=== PATIENT | male | born 1985 | race Caucasian/White ===

== ENCOUNTER 2016-04-03 04:16 | Emergency (ER) | payer BC, OTHER ==
[2016-04-03 04:39] VITALS: BP 114/74; PULSE 74; TEMP 97.9; BMI 37.5
--- NOTE | 2016-04-03 04:54 | PDOC ---
History of Present Illness - General History Source: Patient <Carlos Shrestha - Last Filed: 04/03/16 05:01> - General History Source: Patient Exam Limitations: No Limitations - History of Present Illness Initial Comments: 04/03/16 04:57 The patient is a 30 yo M with a PMHx of gastric bypass who presents to the ED with lower abdominal pain, diarrhea and vomiting for the past 2 days. The patient reports intermittent diarrhea for the past couple of weeks (denies bloody or mucousy stool). However, recently he reports increasing diarrhea with associated lower abdominal pain. The patient reports taking advil at 10:30 prior to presentation however denies any relief. He denies any sick contacts or recent travel. <Sveta David - Last Filed: 04/03/16 05:03> - General Chief Complaint: Pain Stated Complaint: ABD PAIN, FEVER Time Seen by Provider: 04/03/16 04:35 Past History - Surgical History Gastric Stapling: Yes (GASTRIC SLEEVE) - Immunization History TDAP Vaccination: Yes (09/27/15) Immunization Up to Date: No - Psycho/Social/Smoking Cessation Hx Anxiety: No Suicidal Ideation: No Smoking Status: No Smoking History: Never smoked Have you smoked in the past 12 months: No Number of Cigarettes Smoked Daily: 0 Information on smoking cessation initiated: No Hx Alcohol Use: No Drug/Substance Use Hx: No Substance Use Type: None <VicenteMargauxCarlos campos - Last Filed: 04/03/16 05:01> <Sveta David - Last Filed: 04/03/16 05:03> - Past Medical History Allergies/Adverse Reactions: Allergies Allergy/AdvReac Type Severity Reaction Status Date / Time No Known Allergies Allergy Verified 04/03/16 04:25 Home Medications: Ambulatory Orders No Home Medications 0 dose .ROUTE UTDICT 03/08/13 Review of Systems - Review of Systems Able to Perform ROS?: Yes Comments:: 04/03/16 05:01 + vomiting + lower abdominal pain + diarrhea <Sveta David - Last Filed: 04/03/16 05:03> *Physical Exam - Vital Signs Last Vital Signs Temp Pulse Resp BP Pulse Ox 97.9 F 74 14 114/74 100 04/03/16 04:26 04/03/16 04:26 04/03/16 04:26 04/03/16 04:26 04/03/16 04:26 - Physical Exam General Appearance: Yes: Nourished, Appropriately Dressed. No: Apparent Distress HEENT: positive: Normal ENT Inspection Respiratory/Chest: positive: Lungs Clear, Normal Breath Sounds. negative: Respiratory Distress Cardiovascular: positive: Regular Rhythm, Regular Rate Gastrointestinal/Abdominal: positive: Normal Bowel Sounds, Soft. negative: Tender Musculoskeletal: positive: Normal Inspection. negative: CVA Tenderness Integumentary: positive: Normal Color Neurologic: positive: Fully Oriented, Alert, Normal Mood/Affect, Normal Response , Motor Strength 5/5 <Carlos Shrestha - Last Filed: 04/03/16 05:01> - Vital Signs Last Vital Signs Temp Pulse Resp BP Pulse Ox 97.9 F 74 14 114/74 100 04/03/16 04:26 04/03/16 04:26 04/03/16 04:26 04/03/16 04:26 04/03/16 04:26 <Sveta David - Last Filed: 04/03/16 05:03> *DC/Admit/Observation/Transfer <Carlos Shrestha - Last Filed: 04/03/16 05:01> - Attestations Scribe Attestion: 04/03/16 05:03 Documentation prepared by Sveta David, acting as medical delivery technician for Carlos Shrestha MD. <Sveta David - Last Filed: 04/03/16 05:03> Diagnosis at time of Disposition: Diarrhea Qualifiers: Diarrhea type: unspecified type Qualified Code(s): R19.7 - Diarrhea, unspecified - Discharge Dispostion Disposition: HOME - Referrals Referrals: Rico Beckham MD [Primary Care Provider] - Call tomorrow - Patient Instructions Additional Instructions: PLENTY OF FLUIDS (WATER/GATORADE) BLAND DIET, ADVANCE TOLERATED EAT FREQUENT, SMALL MEALS THROUGHOUT THE DAY RETURN IF FEVER, VOMITING, SEVERE PAIN - Post Discharge Activity Work/School Note: Back to Work
== END 2016-04-03 05:03 | disposition home or self-care (01) ==
LOC: JER 04:16
DX: R19.7 Diarrhea, unspecified (principal); Z98.84 Bariatric surgery status
CPT/HCPCS: 99282-25

== ENCOUNTER 2017-05-13 17:12 | Emergency (ER) | payer BC, OTHER ==
[2017-05-13 17:31] VITALS: BP 123/80; PULSE 62; TEMP 98.2; BMI 40.1
--- NOTE | 2017-05-13 17:46 | PDOC ---
History of Present Illness - General History Source: Patient Exam Limitations: No Limitations - History of Present Illness Initial Comments: 05/13/17 17:43 Patient is a 31M with history of gastric sleeve placement 6 years ago here today complaining of 2 weeks of cold symptoms. He states that he's been struggling with a cough, rhinorrhea, and sore throat. He state that he's coming in today because he read on WebMD that he could have pneumonia. He smokes hooka on weekends. He denies fevers, chills, nausea, vomiting, abdominal pain, shortness of breath and chest pain. <Fabricio Grider - Last Filed: 05/13/17 19:14> <Quirino Villanueva - Last Filed: 05/15/17 10:19> - General Chief Complaint: Respiratory Stated Complaint: COUGH & COLD SX Time Seen by Provider: 05/13/17 17:14 Past History - Past Medical History COPD: No - Surgical History Gastric Stapling: Yes (GASTRIC SLEEVE) - Immunization History TDAP Vaccination: (09/27/15) Immunization Up to Date: No - Suicide/Smoking/Psychosocial Hx Smoking Status: No Smoking History: Never smoked Have you smoked in the past 12 months: No Number of Cigarettes Smoked Daily: 0 Hx Alcohol Use: (social) Drug/Substance Use Hx: No Substance Use Type: None <Fabricio Grider - Last Filed: 05/13/17 19:14> <Quirino Villanueva - Last Filed: 05/15/17 10:19> - Past Medical History Allergies/Adverse Reactions: Allergies Allergy/AdvReac Type Severity Reaction Status Date / Time No Known Allergies Allergy Verified 05/13/17 17:27 Home Medications: Ambulatory Orders No Home Medications 0 dose .ROUTE UTDICT 03/08/13 Review of Systems - Review of Systems Comments:: 05/13/17 17:46 GENERAL/CONSTITUTIONAL: No fever or chills. No weakness. HEAD, EYES, EARS, NOSE AND THROAT: No change in vision. Positive for sore throat. CARDIOVASCULAR: No chest pain or shortness of breath RESPIRATORY: Positive for cough, wheezing. Negative for hemoptysis. GASTROINTESTINAL: No nausea, vomiting, diarrhea or constipation. GENITOURINARY: No dysuria, frequency, or change in urination. MUSCULOSKELETAL: No joint or muscle swelling or pain. No neck or back pain. SKIN: No rash NEUROLOGIC: No headache, vertigo, loss of consciousness, or change in strength/ sensation. ENDOCRINE: No increased thirst. No abnormal weight change HEMATOLOGIC/LYMPHATIC: No anemia, easy bleeding, or history of blood clots. ALLERGIC/IMMUNOLOGIC: No hives or skin allergy. <Fabricio Grider - Last Filed: 05/13/17 19:14> *Physical Exam - Vital Signs Last Vital Signs Temp Pulse Resp BP Pulse Ox 98.2 F 62 18 123/80 100 05/13/17 17:12 05/13/17 17:12 05/13/17 17:12 05/13/17 17:12 05/13/17 17:12 - Physical Exam Comments: 05/13/17 17:47 GENERAL: Awake, alert, and fully oriented, in no acute distress HEAD: No signs of trauma, normocephalic, atraumatic EYES: PERRLA, EOMI, sclera anicteric, conjunctiva clear ENT: Auricles normal inspection, hearing grossly normal, nares patent, pharyngeal erythema. Moist mucosa NECK: Normal ROM, supple, no lymphadenopathy, JVD, or masses LUNGS: No distress, speaks full sentences, clear to auscultation bilaterally HEART: Regular rate and rhythm, normal S1 and S2, no murmurs, rubs or gallops, peripheral pulses normal and equal bilaterally. EXTREMITIES: Normal inspection, Normal range of motion, no edema. No clubbing or cyanosis. NEUROLOGICAL: Cranial nerves II through XII grossly intact. Normal speech, normal gait, no focal sensorimotor deficits SKIN: Warm, Dry, normal turgor, no rashes or lesions noted. <Fabricio Grider - Last Filed: 05/13/17 19:14> - Vital Signs Last Vital Signs Temp Pulse Resp BP Pulse Ox 98.2 F 62 18 123/80 100 05/13/17 17:12 05/13/17 17:12 05/13/17 17:12 05/13/17 17:12 05/13/17 17:12 <Quirino Villanueva - Last Filed: 05/15/17 10:19> ED Treatment Course - RADIOLOGY Radiology Studies Ordered: Category Date Time Status CHEST PA & LAT [RAD] Stat Radiology 05/13/17 17:40 Ordered <Fabricio Grider - Last Filed: 05/13/17 19:14> Medical Decision Making - Medical Decision Making 05/13/17 17:48 Patient is 31M here today with cold symptoms. Vital signs stable and normal. Small chance of pneumonia, patient concerned, will do cxr and discharge. 05/13/17 19:14 CXR negative. Will discharge home. <Fabricio Grider - Last Filed: 05/13/17 19:14> *DC/Admit/Observation/Transfer - Discharge Dispostion Admit: No <Fabricio Grider - Last Filed: 05/13/17 19:14> - Discharge Dispostion Admit: No <Quirino Villanueva - Last Filed: 05/15/17 10:19> Diagnosis at time of Disposition: Cough - Discharge Dispostion Disposition: HOME Condition at time of disposition: Good - Patient Instructions Printed Discharge Instructions: DI for Common Cold Additional Instructions: Please return if you have any new, worsening or concerning symptoms. Please follow up with your primary care physician this week.
--- NOTE | 2017-05-13 17:58 | PDOC ---
Attending Attestation - HPI HPI: 05/13/17 19:08 Patient is a 31 M, with PMHx gastric sleeve (6 years ago), who presents today with cold symptoms for 1.5 weeks. Patient states that 1.5 weeks ago he began experiencing a cough. He also endorses sore throat, rhinorrhea, and general malaise. He denies fever, chills, chest pain, or sob. - Physicial Exam PE: 05/13/17 19:09 GENERAL: Well-appearing, well-nourished. No apparent distress. HEENT: Normocephalic, atraumatic. PERRL, EOM intact. CARDIOVASCULAR: Normal S1, S2. Regular rate and rhythm. PULMONARY: Clear to auscultation bilaterally. ABDOMEN: Soft, non-distended, non-tender. EXTREMITIES: Normal ROM in all four extremities. No gross deformities. SKIN: Warm, dry. No rash NEUROLOGICAL: No focal neurological deficits - Medical Decision Making 05/13/17 19:12 chest x-ray normal <Berenice Almeida - Last Filed: 05/13/17 19:11> - Resident Resident Name: Fabricio Grider - Attending Attestation I have performed the following: I have examined & evaluated the patient, The case was reviewed & discussed with the resident, I agree w/resident's findings & plan, Exceptions are as noted <Quirino Villanueva - Last Filed: 05/13/17 19:16>
== END 2017-05-13 19:22 | disposition home or self-care (01) ==
LOC: FER 17:12
DX: R05 Cough (principal); Z98.84 Bariatric surgery status
CPT/HCPCS: 71046-TC-FY; 99283-25

== ENCOUNTER 2017-08-08 18:47 | Emergency (ER) | payer OTHER ==
--- NOTE | 2017-08-08 18:57 | PDOC ---
Rapid Medical Evaluation Time Seen by Provider: 08/08/17 18:55 Medical Evaluation: Allergies Allergy/AdvReac Type Severity Reaction Status Date / Time No Known Allergies Allergy Verified 05/13/17 17:27 08/08/17 18:55 I have performed a brief in-person evaluation of this patient. The patient presents with a chief complaint of: right knee pain s/p fall down stairs Pertinent physical exam findings: -Cyrus's test. Ambulatory I have ordered the following: motrin, xray The patient will proceed to the ED for further evaluation. Discharge Disposition - Diagnosis Knee pain - Referrals - Patient Instructions - Post Discharge Activity
[2017-08-08] MEDS ORDERED: KETOROLAC TROMETHAMINE 30 MG/1 ML VIAL IM ONE (18:58)
[2017-08-08 19:00] VITALS: BP 139/88; PULSE 61; TEMP 97.9; BMI 41.7
[2017-08-08] MEDS ORDERED: KETOROLAC TROMETHAMINE 60 MG/2 ML VIAL IM ONE (19:40)
[2017-08-08] MEDS ORDERED: KETOROLAC TROMETHAMINE 60 MG/2 ML VIAL ONE (19:41)
--- NOTE | 2017-08-08 19:45 | PDOC ---
History of Present Illness - General Chief Complaint: Injury Stated Complaint: FALL INJURY Time Seen by Provider: 08/08/17 18:55 History Source: Patient Exam Limitations: No Limitations - History of Present Illness Initial Comments: 08/08/17 19:39 Patient states with inattention to stairs, tripped and fell twisting his right leg, complaints of pain and swelling to his knee 08/08/17 22:49 Occurred: reports: just prior to arrival, this afternoon Severity: reports: mild Pain Location: reports: lower extremity (right knee) Method of Injury: Yes: fall Loss of Consciousness: no loss of consciousness Associated Symptoms (Fall): denies symptoms Past History - Travel Traveled outside of the country in the last 30 days: No Close contact w/someone who was outside of country & ill: No - Past Medical History Allergies/Adverse Reactions: Allergies Allergy/AdvReac Type Severity Reaction Status Date / Time No Known Allergies Allergy Verified 05/13/17 17:27 Home Medications: Ambulatory Orders No Home Medications 0 dose .ROUTE UTDICT 03/08/13 Naproxen [Naprosyn -] 500 mg PO TID #30 tablet 08/08/17 Oxycodone HCl/Acetaminophen [Percocet 5-325 mg Tablet -] 1 - 2 tab PO Q4H PRN # 7 tablet MDD 4 08/08/17 COPD: No - Surgical History Gastric Stapling: Yes (GASTRIC SLEEVE) - Immunization History TDAP Vaccination: (09/27/15) Immunization Up to Date: Yes - Suicide/Smoking/Psychosocial Hx Smoking Status: No Smoking History: Never smoked Have you smoked in the past 12 months: Yes Number of Cigarettes Smoked Daily: 0 Information on smoking cessation initiated: No Hx Alcohol Use: No Drug/Substance Use Hx: No Substance Use Type: None Review of Systems - Review of Systems Able to Perform ROS?: Yes Is the patient limited German proficient: Yes Constitutional: Yes: Symptoms Reported, See HPI. No: Malaise : No: Symptoms Reported Musculoskeletal: Yes: Symptoms Reported, See HPI, Joint Pain, Joint Swelling All Other Systems: Reviewed and Negative *Physical Exam - Vital Signs Last Vital Signs Temp Pulse Resp BP Pulse Ox 97.9 F 61 18 139/88 99 08/08/17 18:56 08/08/17 18:56 08/08/17 18:56 08/08/17 18:56 08/08/17 18:56 - Physical Exam General Appearance: Yes: Nourished, Appropriately Dressed, Apparent Distress, Moderate Distress HEENT: positive: BIBI, Normal ENT Inspection, TMs Normal, Pharynx Normal Respiratory/Chest: positive: Lungs Clear, Normal Breath Sounds Cardiovascular: positive: Regular Rate Gastrointestinal/Abdominal: positive: Soft Musculoskeletal: positive: Normal Inspection, Decreased Range of Motion Extremity: positive: Normal Capillary Refill, Tender. negative: Normal Inspection, Normal Range of Motion (needed range of motion secondary to swelling and pain to right knee joint. Has medial tenderness at both proximal and distal insertion site of MCL, and some mild tenderness with patella with mobility. Able to flex but is painful, unable to elicit Lockman's test due to guarding. Neurovascular intact to foot.), Calf Tenderness Integumentary: positive: Normal Color, Swelling Neurologic: positive: cable television access coordinator II-XII NML intact, Fully Oriented, Alert, Normal Mood/ Affect, Normal Response, Motor Strength 5/5 Progress Note - Progress Note Progress Note: X-ray shows foreign body noted to proximal tibia above tibia plateau. Possible avulsion injury versus retained foreign body from previous injury. No obvious significant fractures noted. Placed in knee immobilizer, given 7 Percocet tablets and Naprosyn for pain relief, and instructed to follow-up with orthopedist. *DC/Admit/Observation/Transfer Diagnosis at time of Disposition: Knee pain Qualifiers: Chronicity: acute Laterality: right Qualified Code(s): M25.561 - Pain in right knee - Discharge Dispostion Disposition: HOME Condition at time of disposition: Stable Decision to Admit order: No - Prescriptions Prescriptions: Naproxen [Naprosyn -] 500 mg PO TID #30 tablet Oxycodone HCl/Acetaminophen [Percocet 5-325 mg Tablet -] 1 - 2 tab PO Q4H PRN # 7 tablet MDD 4 PRN Reason: Pain - Referrals Referrals: Rico Beckham MD [Primary Care Provider] - Spencer Palumbo MD [Staff Physician] - - Patient Instructions Additional Instructions: Rest, ice to area on and off for 15 minutes 4-6 times a day Avoid heavy lifting or exercise until pain and swelling is resolved or until further directed Keep area highly elevated to reduce swelling Use splints/Dick wrap as directed Followup with orthopedist in one to 2 days if not improving, if significantly improved may wait one week for followup with orthopedist May use ibuprofen 2-200 mg tablets every 6 hours as needed for pain - Post Discharge Activity Forms/Work/School Notes: Back to Work
== END 2017-08-08 20:09 | disposition home or self-care (01) ==
LOC: JERFT 18:47
PROC: 2W3QXYZ Immobilization of Right Lower Leg using Other Device (ICD-10-PCS; principal; 2017-08-08)
DX: S89.81XA Other specified injuries of right lower leg, initial encounter (principal); W10.8XXA Fall (on) (from) other stairs and steps, initial encounter; Y93.89 Activity, other specified; Y92.89 Other specified places as the place of occurrence of the external cause; Y99.8 Other external cause status
CPT/HCPCS: 73562-TC-RT-FY; 99281-25

== ENCOUNTER 2018-01-10 02:08 | Emergency (ER) | payer OTHER ==
--- NOTE | 2018-01-10 02:10 | PDOC ---
History of Present Illness - General Chief Complaint: Sore Throat Stated Complaint: SORE THROAT/FEVER Time Seen by Provider: 01/10/18 02:09 History Source: Patient Exam Limitations: No Limitations - History of Present Illness Initial Comments: 01/10/18 02:30 32 YOM with h/o gastric sleeve presenting with fever, chills, sore throat, ear aches, nasal congestion and headache x 2 days. Tmax 101.2, has been taking tylenol without relief. +left ear ache and pain, difficulty swallowing due to the sore throat. no n/v/d, cough, cp, sob, dizziness or syncope. started off with cough and URI ~2 weeks ago which resolved. +sick contact (girlfriend with URI sx and fever, has been improving) 01/10/18 02:32 01/10/18 02:33 Past History - Past Medical History Allergies/Adverse Reactions: Allergies Allergy/AdvReac Type Severity Reaction Status Date / Time No Known Allergies Allergy Verified 05/13/17 17:27 Home Medications: Ambulatory Orders No Home Medications 0 dose .ROUTE UTDICT 03/08/13 Ibuprofen 600 mg PO QID PRN #20 tablet 01/10/18 COPD: No - Surgical History Gastric Stapling: Yes (GASTRIC SLEEVE) - Immunization History TDAP Vaccination: (09/27/15) Immunization Up to Date: Yes - Suicide/Smoking/Psychosocial Hx Smoking Status: No Smoking History: Never smoked Have you smoked in the past 12 months: Yes Number of Cigarettes Smoked Daily: 0 Hx Alcohol Use: No Drug/Substance Use Hx: No Substance Use Type: None Review of Systems - Review of Systems Able to Perform ROS?: Yes Comments:: 01/10/18 02:32 GENERAL/CONSTITUTIONAL: +fever or chills. No weakness. HEAD, EYES, EARS, NOSE AND THROAT: No change in vision or hearing. +ear pain, no discharge. no eye pain or discharge. +sore throat, difficulty swallowing. + nasal congestion. CARDIOVASCULAR: No chest pain or palpitations, syncope or edema. RESPIRATORY: No SOB, cough, wheezing, or hemoptysis. GASTROINTESTINAL No nausea/vomiting. No diarrhea or constipation. No bloody stools. GENITOURINARY: No hematuria, dysuria, frequency, urgency or other changes. MUSCULOSKELETAL: No joint or muscle swelling or pain. No neck or back pain. SKIN: No rash or changes in skin color or lesions. NEUROLOGIC: No headache, vertigo, loss of consciousness, or dizziness HEMATOLOGIC/LYMPHATIC: No anemia, easy bruising/bleeding, or history of blood clots. ALLERGIC/IMMUNOLOGIC: No allergies All other systems reviewed and negative, or as documented in HPI. 01/10/18 02:33 *Physical Exam - Physical Exam Comments: 01/10/18 02:34 General: Well appearing, awake and alert, NAD. HEENT: NCAT, PERRL, EOMI, clear conjunctiva, anicteric, moist mucus membranes, clear oropharynx. Airway patent, normal phonation. no palatial petechaie, bilateral enlarged tonsils but no exudates. Uvula midline. No sinus tenderness, TM clear, no pinna tenderness to manipulation. Neck: neck supple, FROM. left cervical neck chain tenderness to palp, soft lymph nodes. Resp: CTAB, normal and even respirations, no respiratory distress CVS: RRR, no murmurs, 2+ peripheral pulses throughout, no peripheral edema Abdomen: soft, NTND, no peritoneal signs. Back: nontender, normal inspection and ROM MSK: no edema, YOUSSEF x4, ROM intact. No clubbing or cyanosis. normal bulk and tone. Neuro: alert, no focal neuro deficits. Skin: warm and well perfused, cap refill <2 sec, normal color 01/10/18 02:51 Medical Decision Making - Medical Decision Making 01/10/18 02:35 32 YOM with sore throat, fevers, chills. Vital signs reviewed, +fever to 100.6. otherwise wnl ED course: oral fluids. ibuprofen and tylenol for analgesia and antipyretic. strep test_pending Centor score ~3 (+fever, no cough, tender cervical chain). on reeval, much improved. no airway involvement, normal respirations, no systemic findings to suggest serious bacterial infection. no focal findings. pt elects for treatment with bicillin IM shot, as it will take long time for strep ag testing, and can f/u throat cultures given his moderate risk for strep pharyngitis. repeat VS improved, defervesced Dispo: I discussed the physical exam findings, ancillary test results and final diagnoses with the patient. I answered all of the patient's questions. The patient was satisfied with the care received and felt comfortable with the discharge plan and treatment plan. The patient will return to the Emergency Department with any new, persistent or worsening symptoms. - supportive care, hydration, analgesia advised, salt water gargles, hot tea with lemon and any soothing agents for throat. follow up on throat cultures. 01/10/18 02:52 *DC/Admit/Observation/Transfer Diagnosis at time of Disposition: Fever, Pharyngitis - Discharge Dispostion Disposition: HOME Condition at time of disposition: Stable Decision to Admit order: No - Prescriptions Prescriptions: Ibuprofen 600 mg PO QID PRN #20 tablet PRN Reason: Pain - Referrals Referrals: Rico Beckham MD [Primary Care Provider] - - Patient Instructions Printed Discharge Instructions: DI for Pharyngitis/Tonsillopharyngitis -- Adult , DI for Fever (Symptom) -- Adult Additional Instructions: - supportive care, fluid hydration, analgesia advised (tylenol and /or motrin as needed every 6 hours, preferably motrin/aleve/advil as that has anti inflammatory properties), salt water gargles, hot tea with lemon and any soothing agents for throat. follow up on throat cultures. you were treated presumably for the strep throat infection, but results are still pending, you were given a penicillin shot follow up with your primary doctor monitor for worsening infection such as fever, inability to tolerate oral intake , respiratory distress, dehydration or other concerning symptoms. - Post Discharge Activity Forms/Work/School Notes: Back to Work
[2018-01-10 02:15] VITALS: BMI 43.7
[2018-01-10] MEDS ORDERED: IBUPROFEN 600 MG TABLET (FP) PO ONE ×2 (02:32→02:37)
[2018-01-10] MEDS ORDERED: ACETAMINOPHEN 325 MG TABLET (FP) PO ONE (02:37)
[2018-01-10] MEDS ORDERED: ACETAMINOPHEN 325 MG TABLET (FP) ONE (02:39)
[2018-01-10] MEDS ORDERED: PENICILLIN G BENZATHINE 1,200,000 UNIT/2 ML PFS IM ONE ×2 (02:49→02:58)
[2018-01-10 03:05] VITALS: BP 102/55; PULSE 73; TEMP 99.9
== END 2018-01-10 03:13 | disposition home or self-care (01) ==
LOC: FER 02:08
DX: J02.9 Acute pharyngitis, unspecified (principal); R50.9 Fever, unspecified; Z98.84 Bariatric surgery status
CPT/HCPCS: 87070; 87077; 99281-25

== ENCOUNTER 2018-01-11 21:00 | Emergency (ER) | payer OTHER ==
--- NOTE | 2018-01-11 21:11 | PDOC ---
History of Present Illness - General History Source: Patient Exam Limitations: No Limitations <Oli Edwards Huseyin - Last Filed: 01/11/18 21:22> - General History Source: Patient Exam Limitations: No Limitations - History of Present Illness Initial Comments: 01/11/18 21:27 The patient is a 32 year old male with no significant past medical history who presents to the ED with complaints of throat pain for several days. Patient states he tested positive for Strep throat 2 days ago. He comes into the ED today stating his throat pain is not alleviating and is complaining on subjective fevers. Patient received a shot of penicillin 2 days ago with no relief of present symptoms. Denies chest pain or shortness of breath. Denies nausea or vomiting. Denies any other symptoms. PAST MEDICAL HISTORY: no significant history PAST SURGICAL HISTORY: no significant history FAMILY HISTORY: no pertinent history SOCIAL HISTORY: Pt lives with family and is employed. MEDICATIONS: reviewed ALLERGIES: As per nursing notes General: + fever, no weakness, no weight loss HEENT:+ throat pain. No change in vision. No ear pain CardioVascular: No chest pain or shortness of breath Respiratory:No cough, or wheezing. Gastrointestinal: no nausea, vomiting, diarrhea or constipation, No rectal bleeding Genitourinary: No dysuria, hematuria, or frequency Musculoskeletal: No joint or muscle pain or swelling Neurologic: No headache, vertigo, dizziness or loss of consciousness Psychiatric: nor depression Skin: No rashes or easy bruising Endocrine: no increased thirst or abnormal weight change Allergic: no skin or latex allergy All other systems reviewed and normal GENERAL: The patient is awake, alert, and fully oriented, in no acute distress. HEAD: Normal with no signs of trauma. THROAT: + posterior oropharynx tonsil enlarged with exudates no peritonsillar abscess bilateral submandibular lymphadenopathy EYES: Pupils equal, round and reactive to light, extraocular movements intact, sclera anicteric, conjunctiva clear. EXTREMITIES: Normal range of motion, no edema. NEUROLOGICAL: Normal speech, normal gait. PSYCH: Normal mood, normal affect. SKIN: Warm, Dry, normal turgor, no rashes or lesions noted. <Román Bradley - Last Filed: 01/11/18 21:28> - General Chief Complaint: Sore Throat Stated Complaint: FOLLOW UP STREP THROAT Time Seen by Provider: 01/11/18 21:10 Past History - Past Medical History COPD: No - Surgical History Gastric Stapling: Yes (GASTRIC SLEEVE) - Immunization History TDAP Vaccination: (09/27/15) Immunization Up to Date: Yes - Suicide/Smoking/Psychosocial Hx Smoking Status: No Smoking History: Never smoked Have you smoked in the past 12 months: Yes Number of Cigarettes Smoked Daily: 0 Hx Alcohol Use: No Drug/Substance Use Hx: No Substance Use Type: None <Oli Edwards I - Last Filed: 01/11/18 21:22> <Román Bradley - Last Filed: 01/11/18 21:28> - Past Medical History Allergies/Adverse Reactions: Allergies Allergy/AdvReac Type Severity Reaction Status Date / Time No Known Allergies Allergy Verified 05/13/17 17:27 Home Medications: Ambulatory Orders No Home Medications 0 dose .ROUTE UTDICT 03/08/13 Ibuprofen 600 mg PO QID PRN #20 tablet 01/10/18 *Physical Exam - Vital Signs Last Vital Signs Temp Pulse Resp BP Pulse Ox 99.3 F 72 16 128/82 99 01/11/18 21:09 01/11/18 21:09 01/11/18 21:09 01/11/18 21:09 01/11/18 21:09 <Román Bradley - Last Filed: 01/11/18 21:28> *DC/Admit/Observation/Transfer - Discharge Dispostion Decision to Admit order: No <Oli Edwards I - Last Filed: 01/11/18 21:22> - Attestations Scribe Attestion: 01/11/18 21:28 Documentation prepared by Román Bradley, acting as medical billing and coding instructor for Oli Edwards MD <Román Bradley - Last Filed: 01/11/18 21:28> Diagnosis at time of Disposition: Strep pharyngitis - Discharge Dispostion Disposition: HOME Condition at time of disposition: Good - Referrals Referrals: Rico Beckham MD [Primary Care Provider] - - Patient Instructions Additional Instructions: For the pain fevers you can take Aleve 2 tablets twice a day in addition to the Aleve if needed you can also take Tylenol 2 tablets as often as every 6 hours. A test for mono was sent to the laboratory call tomorrow for the result. If it is positive there is no specific treatment as it is a virus and well run its course however your sore throat and symptoms will persist for several more days before getting better. Return to the emergency department immediately with ANY new, persistent or worsening symptoms. Continue any medications as previously prescribed by your physician. You should follow up with your primary doctor as soon as possible regarding today's emergency department visit. . Please make sure your doctor reviews the results of your emergency evaluation. Thank you for coming to the Emergency Department today for your care. It was a pleasure to see you today. Please note that your evaluation is INCOMPLETE until you follow-up with your doctor. - Post Discharge Activity
[2018-01-11 21:16] VITALS: BP 128/82; PULSE 72; TEMP 99.3; BMI 43.7
== END 2018-01-11 21:32 | disposition home or self-care (01) ==
LOC: FER 21:00
DX: J02.0 Streptococcal pharyngitis (principal)
CPT/HCPCS: 36415; 86308; 99281-25

== ENCOUNTER 2021-02-25 19:27 | Emergency (ER) | payer OTHER ==
[2021-02-25] MEDS ORDERED: DALBAVANCIN HCL 1,500 MG in DEXTROSE 5%-WATER - 500 ML IVPB ONE (19:41)
[2021-02-25 19:53] VITALS: BP 142/94; PULSE 79; TEMP 98.4; BMI 49.9
[2021-02-25 20:52] LABS: ALBUMIN 4.1 g/dl (3.4-5.0); BILIRUBIN,TOTAL 0.8 mg/dl (0.2-1); CALCIUM 8.8 mg/dl (8.5-10); CREATININE 0.9 mg/dl (0.55-1.3); TOT PROT 6.2 g/dl (6.4-8.2)
[2021-02-25 21:35] LABS: BASO % 0.5 % (0-2.0); HEMOGLOBIN 14.8 GM/dL (11.7-16.9); LYMPH % 26.5 % (8-40); MCH 27.4 pg (25.7-33.7); MCHC 32.2 g/dl (32.0-35.9); MEAN PLT VOLUME 8.9 fl (7.5-11.1); MONO % 8.7 % (3.8-10.2); NEUT % 63.3 % (42.8-82.8); PLATELET COUNT 233 10^3/uL (134-434); RBC 5.41 M/mm3 (4.00-5.60); RDW 14.7 % (11.9-15.9); WHITE BLOOD COUNT 6.5 K/mm3 (4.0-10.0)
== END 2021-02-25 21:43 | disposition home or self-care (01) ==
LOC: FER 19:27
PROC: 3E033GC Introduction of Other Therapeutic Substance into Peripheral Vein, Percutaneous Approach (ICD-10-PCS; principal; 2021-02-25)
DX: R07.89 Other chest pain (principal)
CPT/HCPCS: 36415; 80053; 82550; 82553; 84484; 85025; 93005; 99284-25; J0875

== ENCOUNTER 2023-06-04 00:50 | Emergency (ER) | payer OTHER ==
[2023-06-04 00:57] VITALS: BP 158/99; PULSE 81; RESP 18; TEMP 99; BMI 51.0
[2023-06-04] MEDS ORDERED: AZITHROMYCIN 500 MG TABLET ONE (00:58)
[2023-06-04] MEDS: AZITHROMYCIN 500 MG TABLET PO ONE (01:00)
== END 2023-06-04 01:05 | disposition home or self-care (01) ==
LOC: FER 00:50
DX: R05.1 Acute cough (principal); R09.81 Nasal congestion
CPT/HCPCS: 99283-25

== ENCOUNTER 2023-10-25 18:39 | Emergency (ER) | payer OTHER ==
[2023-10-25 18:57] VITALS: BP 124/88; PULSE 98; RESP 18; BMI 50.8
[2023-10-25 20:07] VITALS: TEMP 99
[2023-10-25 21:42] LABS: HIV INTERPRETATION NEGATIVE (NEGATIVE)
== END 2023-10-25 21:45 | disposition home or self-care (01) ==
LOC: JERFT 18:39 → JER 18:39 → JERFT 21:45
DX: U07.1 COVID-19 (principal); R05.9 Cough, unspecified; R09.81 Nasal congestion; R06.02 Shortness of breath
CPT/HCPCS: 0241U-QW; 36415; 71046-TC-FY; 86803; 87389; 93005; 93010; 99285-25

== ENCOUNTER 2023-10-28 22:39 | Emergency (ER) | payer OTHER ==
[2023-10-28 23:00] VITALS: BP 145/93; PULSE 73; RESP 18; TEMP 97.7; BMI 50.8
[2023-10-29 00:06] LABS: HEMATOCRIT 44.6 % (35.4-49); HEMOGLOBIN 14.7 GM/dL (11.7-16.9); RBC 5.25 M/mm3 (4.00-5.60); WHITE BLOOD COUNT 6.4 K/mm3 (4.0-10.0)
[2023-10-29] MEDS: SODIUM CHLORIDE 0.9% 500 ML INFUS.BAG IV ONE (00:06)
[2023-10-29 00:07] LABS: BASO % 0.4 % (0-2.0); EOS % 0.9 % (0-4.5); LYMPH % 32.6 % (8-40); MEAN PLT VOLUME 7.9 fl (7.5-11.1); MONO % 9.2 % (3.8-10.2); NEUT % 56.9 % (42.8-82.8); PLATELET COUNT 249 10^3/uL (134-434); RDW 15.6 % (11.9-15.9)
[2023-10-29 00:26] LABS: POTASSIUM 4.2 mmol/L (3.5-5.1)
[2023-10-29 00:27] LABS: CALCIUM 8.7 mg/dL (8.5-10.1)
[2023-10-29 00:28] LABS: BLOOD UREA NITROGEN 10.2 mg/dL (7-18)
[2023-10-29 00:31] LABS: CREATININE 0.9 mg/dL (0.55-1.3)
== END 2023-10-29 01:12 | disposition home or self-care (01) ==
LOC: JER 22:39
DX: U07.1 COVID-19 (principal); R42 Dizziness and giddiness; R53.1 Weakness; R07.89 Other chest pain; R11.0 Nausea; M25.511 Pain in right shoulder
CPT/HCPCS: 36415; 71045-TC-FY; 80048; 84484; 85025; 93005; 93010; 99285-25

== ENCOUNTER 2024-01-19 16:50 | Emergency (ER) | payer OTHER ==
[2024-01-19 17:02] VITALS: BP 135/87; PULSE 90; RESP 19; TEMP 99.2; BMI 51.6
[2024-01-19] MEDS ORDERED: ACETAMINOPHEN 325 MG TABLET (FP) ONE (18:00)
[2024-01-19] MEDS ORDERED: MECLIZINE HCL 25 MG TABLET (FP) ONE ×2 (18:00)
[2024-01-19] MEDS: MECLIZINE HCL 25 MG TABLET (FP) PO ONE (18:03)
[2024-01-19] MEDS: ACETAMINOPHEN 325 MG TABLET (FP) PO ONE (18:03)
[2024-01-19 18:06] LABS: HEMATOCRIT 46.2 % (35.4-49); HEMOGLOBIN 15.2 G/dL (11.7-16.9); MCH 28.5 pg (25.7-33.7); MCHC 32.9 g/dl (32.0-35.9); MEAN CELL VOLUME 86.6 fl (80-96); MEAN PLT VOLUME 9.1 fl (7.5-11.1); PLATELET COUNT 225.8 10^3/uL (134-434); RBC 5.34 10^6/uL (4.00-5.60); RDW 14.7 % (11.9-15.9); WHITE BLOOD COUNT 6.7 10^3/uL (4.0-10.8)
[2024-01-19 18:24] LABS: ALBUMIN 4.2 g/dl (3.4-5.0); BILIRUBIN,TOTAL 0.6 mg/dl (0.2-1); CALCIUM 9.3 mg/dl (8.5-10.1); CREATININE 0.9 mg/dl (0.6-1.3); POTASSIUM 4.1 mmol/L (3.5-5.1); TOT PROT 6.9 g/dl (6.4-8.2)
[2024-01-19 18:26] LABS: PLATELET ESTIMATE ADEQUATE
[2024-01-19 22:32] LABS: HIV INTERPRETATION NEGATIVE (NEGATIVE)
== END 2024-01-19 18:55 | disposition home or self-care (01) ==
LOC: FER 16:50
DX: R07.89 Other chest pain (principal); R42 Dizziness and giddiness; R51.9 Headache, unspecified; R11.2 Nausea with vomiting, unspecified
CPT/HCPCS: 36415; 71045-TC-FY; 80053; 84484; 85027; 86803; 87389; 93005; 93010; 99284-25

== ENCOUNTER 2024-02-24 17:09 | Emergency (ER) | payer OTHER ==
[2024-02-24 17:23] VITALS: BP 130/83; PULSE 75; RESP 18; TEMP 98.2; BMI 52.2
[2024-02-24] MEDS ORDERED: ALBUTEROL SO4 2.5/IPRATROPIUM 0.5 INH SOL 3 ML VIAL.NEB. NEB ONE (17:57)
[2024-02-24] MEDS: ALBUTEROL SO4 2.5/IPRATROPIUM 0.5 INH SOL 3 ML VIAL.NEB. NEB ONE (18:00)
== END 2024-02-24 19:00 | disposition home or self-care (01) ==
LOC: FER 17:09
PROC: 3E0F7GC Introduction of Other Therapeutic Substance into Respiratory Tract, Via Natural or Artificial Opening (ICD-10-PCS; principal; 2024-02-24)
DX: R05.9 Cough, unspecified (principal); B34.9 Viral infection, unspecified
CPT/HCPCS: 99283-25